=== PATIENT | male | born 1980 | race Caucasian/White ===

== ENCOUNTER 2017-11-01 20:10 | Emergency (ER) | payer OTHER ==
[~2017-11-01] VITALS: Ht 162.6 cm; Wt 87.0 kg
[2017-11-01 20:25] VITALS: TEMP 36.6; Ht 162.6 cm; Wt 87.0 kg
[2017-11-01] MEDS ORDERED: IBUPROFEN 600 MG TAB PO STA (20:34)
[2017-11-01] MEDS ORDERED: OXYCODONE IR HOME PACK PO ONE (20:45)
--- NOTE | 2017-11-01 20:55 | DIAGNOSTIC IMAGING REPORT ---
R SHOULDER MIN 2 VIEWS ROUTINE CLINICAL HISTORY: fall, post reduction dislocation COMPARISON: None. DISCUSSION: The bones and joint spaces appear intact. There is no evidence of fracture, dislocation or bony disease. There is no evidence for soft tissue swelling. IMPRESSION: Anatomic alignment post closed reduction. No acute process. The above report was generated using voice recognition software. It may contain grammatical, syntax or spelling errors. Electronically signed by: Deon Toribio M.D. 11/01/2017 8:54 PM Dictated Date/Time: 11/01/2017 8:53 PM
[2017-11-01 21:26] VITALS: BP 137/76; PULSE 63; O2SAT 99
--- NOTE | 2017-11-01 21:38 | EMERGENCY ROOM VISIT NOTE ---
History Report prepared by Sandip: Ruthy Carrington Under the Supervision of: Dr. Darrius Bedolla D.O. First contact with patient: 20:28 Chief Complaint: SHOULDER PAIN Stated Complaint: SHOULDER INJURY History of Present Illness The patient is a 36 year old male who presents to the Emergency Room with complaints of sudden right shoulder pain starting an hour ago. The patient states that he was playing softball and slide out sideways to catch a softball. He reports that he stood up and felt like his shoulder was dislocated. The patient complains of numbness in his arm. The patient denies a headache, neck pain, and ever doing this before. Source of History: patient Onset: an hour ago Position: shoulder (right) Quality: other (dislocated) Timing: other (sudden) Associated Symptoms: + numbness, No headache, No neck pain Review of Systems See HPI for pertinent positives & negatives. A total of 10 systems reviewed and were otherwise negative. Past Medical & Surgical Medical Problems: (1) No Known Active Medical Problems Family History No pertinent family history Social History Smoking Status: Never Smoker Alcohol Use: occasionally Marital Status: single Occupation Status: employed Allergies Coded Allergies: No Known Allergies (Unverified , 06/19/15) Physical Exam Vital Signs Date Time Temp Pulse Resp B/P (MAP) Pulse Ox O2 Delivery O2 Flow Rate FiO2 11/01/17 21:26 63 16 137/76 99 Room Air 11/01/17 20:25 36.6 66 18 141/80 97 Room Air Physical Exam GENERAL: Patient is awake, alert, and looks uncomfortable. Patient is anxious appearing. EYES: The conjunctivae are clear. The pupils are round and reactive. EARS, NOSE, MOUTH AND THROAT: The nose is without any evidence of any deformity. Mucous membranes are moist. Tongue is midline NECK: The neck is nontender and supple. RESPIRATORY: Normal respiratory effort is noted. There is no evidence of wheezing rhonchi or rales to auscultation. CARDIOVASCULAR: Regular rate and rhythm noted. There no murmurs rubs or gallops normal S1 normal S2 GASTROINTESTINAL: The abdomen is soft. Bowel sounds are present in all quadrants. Abdomen is nontender. BACK: No midline tenderness or or step-off noted range of motion in flexion extension as well as rotation no signs of muscle spasm noted. MUSCULOSKELETAL/EXTREMITIES: Right upper extremity held in internal rotation. There was deltoid step off with anterior fullness noted. Full range of motion is noted in the hips and left shoulder. SKIN: There is no obvious evidence of any rash. There are no petechiae, pallor or cyanosis noted. NEUROLOGIC: Patient is awake alert and oriented x3. Medical Decision & Procedures ER Provider Diagnostic Interpretation: Radiology results as stated below per my review and radiologist interpretation: R SHOULDER MIN 2 VIEWS ROUTINE CLINICAL HISTORY: fall, post reduction dislocation COMPARISON: None. DISCUSSION: The bones and joint spaces appear intact. There is no evidence of fracture, dislocation or bony disease. There is no evidence for soft tissue swelling. IMPRESSION: Anatomic alignment post closed reduction. No acute process. The above report was generated using voice recognition software. It may contain grammatical, syntax or spelling errors. Electronically signed by: Deon Toribio M.D. 11/01/2017 8:54 PM Dictated Date/Time: 11/01/2017 8:53 PM Medications Administered Medications (Trade) Dose Ordered Sig/Laura Route Start Time Stop Time Status Last Admin Dose Admin Ibuprofen (Motrin Tab) 600 mg NOW STAT PO 11/01/17 20:34 11/01/17 20:36 DC 11/01/17 20:46 600 MG Oxycodone HCl (Roxicodone Immediate Rel 5MG Home Pack) 1 homepack UD ONCE PO 11/01/17 20:45 11/01/17 20:46 DC 11/01/17 21:28 1 HOMEPACK ED Course 2030: The patient was evaluated in room D4B. A complete history and physical examination were performed. 2033: Ordered Motrin Tab 600 mg PO. 2043: I reevaluated the patient and he is feeling better. 2044: Ordered Oxycodone HCl 1 homepack PO. 2047: Upon reevaluation, the patient is resting comfortably. I discussed the results and treatment plan with him. He verbalized agreement of the treatment plan. The patient was discharged home. Medical Decision Differential diagnosis: Etiologies such as fracture, dislocation, neurovascular compromise, compartment syndrome, soft tissue injury, as well as others were entertained. Nursing notes reviewed. The patient is a 36-year-old male who presented to the emergency department with a clinical right anterior shoulder dislocation. The patient was reduced in the usual fashion. He tolerated the reduction quite well. He initially complained of significant pain as well as tingling over the right upper extremity. After reduction and final reevaluation the patient complained of no numbness or discomfort. He was treated with a sling and given a home pack of pain medication. He was encouraged to call the on-call orthopedic physician in the morning to schedule a follow-up appointment. He is also encouraged to continue Motrin and Tylenol for pain and return to the emergency department immediately if symptoms change worsen or the need arises. Medication Reconcilliation Current Medication List: was personally reviewed by me Blood Pressure Screening Patient's blood pressure: Elevated blood pressure Blood pressure disposition: Elevated BP felt to be situational Impression Primary Impression: Anterior dislocation of right shoulder Scribe Attestation The scribe's documentation has been prepared under my direction and personally reviewed by me in its entirety. I confirm that the note above accurately reflects all work, treatment, procedures, and medical decision making performed by me. Departure Information Dispostion Home / Self-Care Referrals [facility] ([facility]) Forms HOME CARE DOCUMENTATION FORM, IMPORTANT VISIT INFORMATION Patient Instructions My [facility] Additional Instructions Continue to use the sling especially when you are up or walking around. Continue all medications as prescribed. Continue to use Motrin and Tylenol as directed for pain. Call the orthopedic physician in the morning to schedule a follow-up appointment.
== END 2017-11-01 21:26 | disposition home or self-care (01) ==
LOC: C.EDB 20:11 → C.EDD 21:26
DX: S43.004A Unspecified dislocation of right shoulder joint, initial encounter (principal); W19.XXXA Unspecified fall, initial encounter; Y93.64 Activity, baseball; R03.0 Elevated blood-pressure reading, without diagnosis of hypertension